=== PATIENT | male | born 1935 | race Caucasian/White ===

== ENCOUNTER → 2017-01-31 | Outpatient (CLI) | payer MEDICARE | END | disposition home or self-care (01) | LOC: RAD.S 07:39 | DX: R13.12 Dysphagia, oropharyngeal phase (principal) ==

== ENCOUNTER → 2017-02-03 | Outpatient (CLI) | payer MEDICARE ==
--- NOTE | ~2017-02-03 | ECH ---
Transthoracic Echocardiography Report (TTE) Demographics Patient Name CANDACE ROSE Date of Study 02/03/2017 Patient Number [id number] Visit Number [id number] Date of 1935 Room Number Accession Number [id number] Gender Male Age 81 year(s) Referring Olga Gomez [employer] Service Officer Nely Casillas MD [facility] Sudhir RAMIREZ Physician Interpreting Olga Byrne Director Hris Physician Supervising Ordering Physician Sudhir RAMIREZ MD/MLP Nurse Stress Junior Php Developer Conclusions Contractility Score Summary Wall motion difficult to assess due to arrhythmia and heart rate. Summary Technically good exam. The estimated left ventricular ejection fraction is 30-35%. Mild concentric left ventricular hypertrophy. The left atrium is severely dilated by LA volume index measurement. The right atrium is mild to moderately dilated. Mild-moderate mitral regurgitation by color Doppler. There is mild aortic regurgitation by color Doppler. Sclerotic changes of the aortic valve with decreased leaflet excursion but no significant stenosis by doppler. Mild tricuspid regurgitation by color Doppler. There is mild pulmonary hypertension. The pulmonary pressure (RVSP) is 37 mmHg. The ascending aorta appears severely dilated. The maximum diameter measures 5.4 cm. This is stable from previous exam of 07/15/2015. Procedure Type of Study TTE procedure:Echo Complete SF. Procedure Date Date: 02/03/2017 Start: 08:15 AM Technical Quality: Good visualization Indications:Atrial fibrillation. Additional Indications:Ascending aortic aneursym Appropriate Use Criteria: 9 Height: 69 inches Weight: 172 pounds BSA: 1.94 m Rhythm: Atrial fibrillation with RVR HR: 135 bpm BP: 110/68 mmHg M-Mode/2D Measurements LV Diastolic Dimension: 5.19 cm LV Systolic Dimension: 4.43 cm LV Septum Diastolic: 1.09 cm LV PW Diastolic: 1.06 cm AO Root Dimension: 3.37 cm Cardiac Output: 6.01 l/min LA Dimension: 4.05 cm Cardiac Index: 3.1 l/min*m RV Diastolic Dimension: 4.13 cm LA volume index: 72 ml/m LVOT: 1.99 cm LVOT VTI: 14.33 cm RV Base: 3.3 cm LV Stroke volume: 44.55 ml RV Mid: 2 cm LV Stroke volume index: 22.96 ml/m TAPSE: 2.2 cm TDI-S': 11 cm/s Doppler Measurements AV Peak Velocity: 2 m/s MV Peak E-Wave: 0.95 m/s AV Peak Gradient: 16 mmHg AV Mean Gradient: 12.21 mmHg MV P1/2t: 64.1 msec LVOT Peak Velocity: 0.72 m/s AV Area (Continuity):1.09 cm AV P1/2t: 579.7 msec MV Area (PHT): 3.43 cm TR Velocity:2.59 m/s PV Peak Velocity: 0.55 m/s TR Gradient:26.83 mmHg PV Peak Gradient: 1.21 mmHg Estimated RAP:10 mmHg Estimated PASP: 36.83 mmHg Estimated RVSP: 37 mmHg E' Septal Velocity: 0.06 m/s E' Lateral Velocity: 0.12 m/s RA Area: 24 cm Findings Left Ventricle The left ventricle is normal in size . Mild concentric left ventricular hypertrophy. Diastolic function indeterminate due to patient's arrhythmia. Right Ventricle Normal right ventricle structure and function. Left Atrium The left atrium is severely dilated by LA volume index measurement. Right Atrium The right atrium is mild to moderately dilated. Mitral Valve Mild mitral annular calcification. Mild-moderate mitral regurgitation by color Doppler. Aortic Valve The aortic valve is mildly sclerotic. There is mild aortic regurgitation by color Doppler. Tricuspid Valve Normal tricuspid valve structure and function. Mild tricuspid regurgitation by color Doppler. There is mild pulmonary hypertension. The pulmonary pressure (RVSP) is 37 mmHg. Pulmonic Valve Normal pulmonic valve structure and function. Pericardial Effusion No evidence of pericardial effusion. Miscellaneous The ascending aorta appears severely dilated. The maximum diameter measures 5.4 cm. Pleural Effusion No evidence of pleural effusion. Contractility Score LV regional wall motion:(0-Non visualized 1-Normal 2-Hypokinesis 3-Akinesis 4-Dyskinesis 5-Aneurysm) Signature
== END | disposition home or self-care (01) ==
LOC: RAD.S 01-26 14:59
DX: I71.2 Thoracic aortic aneurysm, without rupture (principal); I48.91 Unspecified atrial fibrillation; R91.8 Other nonspecific abnormal finding of lung field; I70.0 Atherosclerosis of aorta; J90 Pleural effusion, not elsewhere classified; I08.3 Combined rheumatic disorders of mitral, aortic and tricuspid valves; I51.7 Cardiomegaly

== ENCOUNTER 2017-02-18 07:10 | Day surgery (SDC) | payer MEDICARE ==
[~2017-02-18] VITALS: Ht 175.3 cm; Wt 76.4 kg
--- NOTE | ~2017-02-18 | CATH ---
Cardiac Diagnostic Report Demographics Patient Name MILTON Roberts Gender Male Date of 1935 Age 81 year(s) Patient Number [id number] Date of Study 02/18/2017 Visit Number [id number] Room Number Corporate ID Ht 175.26 cm Wt 77.56 kg Accession Number [id number] BSA 1.93 m kg/m Referring Olga Cantor Primary Physician Physician Jason Gonzales MD Performing Alba Gonzales MD Secondary Physician Physician Diagnostic Alba Gonzales MD Assisting Physician Physician Interventional Physician Classification Officer Physician Findings and Conclusions Procedure Description The patient was brought to the diagnostic cardiac catheterization laboratory in the fasting, non-sedated state. Informed consent was obtained in the written and verbal form after the risks and benefits were explained. The patient had no further questions and agreed to proceed. The planned puncture-incision site(s) were shaved and prepped with ChloraPrep and draped in the usual sterile manner. Conscious sedation, supplemental oxygen, and pain control medications were delivered by a registered nurse under physician guidance. Surface ECG rhythm, blood pressure measurement, and pulse oximetry were monitored throughout the procedure. Arterial access. The access site was infiltrated with lidocaine. The vessel was entered with the Seldinger technique. A sheath was advanced into the vessel and used for catheter placement. Selective left coronary angiography. A catheter was advanced into the left coronary vessel ostium under Fluoroscopic guidance. Contrast was injected by hand. Images were obtained in multiple projections. Selective right coronary angiography. A catheter was advanced into the right coronary vessel ostium under fluoroscopic guidance. Contrast was injected by hand. Images were obtained in multiple projections. Left heart catheterization. A catheter was advanced across the aortic valve to the left ventricle under fluoroscopic guidance. Resting hemodynamics were obtained. Arterial artery hemostasis was achieved. The patient was transferred to a regular nursing floor via cart accompanied by a nurse. The patient left the laboratory in stable condition. Diagnostic Cath Status: Elective Procedure Procedure Type Diagnostic procedure:Angiography:, Coronary Angios w/[facility] Indications: Pre-op AAA repair, Hyperlipidemia, Hypertension, Early family history of CAD and Peripheral vascular disease. The procedure was explained in detail to the patient. Risks, complications and alternative treatments were reviewed. Written consent was obtained. Medications Reviewed with Patient prior to Procedure. Procedure Data Procedure Date Date: 02/18/2017Start: 08:15 AM Medical History Allergies - No known allergies. Risk Factors The patient risk factors include:cerebrovascular disease, hypertension, family history of premature CAD, chronic lung disease, last creatinine: 1.1 mg/dl, creatinine clearance: 57.78 ml/min and dyslipidemia. Admission Data Admission Date: 02/18/2017 Admission Time: 07:10 AM Insurance Payors: Medicare. Clinical Evaluation Leading to Procedure - There were no CAD presentation symptoms. - There were no anginal symptoms. Anti-anginal medications were prescribed during the past two weeks. The medications are: Beta Blockers and Ca channel Blockers. 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 Hemodynamics Condition: Rest O2 Consumption: Estimated: 96.48 Shunts Oxygen Values O2 Consumption 96.48 Signatures
== END 2017-02-18 08:49 | disposition home or self-care (01) ==
LOC: SSS 07:10
DX: I71.2 Thoracic aortic aneurysm, without rupture (principal); G20 Parkinson's disease; J45.909 Unspecified asthma, uncomplicated; F41.9 Anxiety disorder, unspecified; K21.9 Gastro-esophageal reflux disease without esophagitis; G25.81 Restless legs syndrome; M47.816 Spondylosis without myelopathy or radiculopathy, lumbar region; E03.9 Hypothyroidism, unspecified; Z90.49 Acquired absence of other specified parts of digestive tract; Z86.73 Personal history of transient ischemic attack (TIA), and cerebral infarction without residual deficits; Z96.651 Presence of right artificial knee joint; Z98.890 Other specified postprocedural states; Z79.899 Other long term (current) drug therapy

== ENCOUNTER 2017-02-25 10:57 | Day surgery (SDC) | payer MEDICARE ==
[~2017-02-25] VITALS: Ht 175.3 cm; Wt 76.3 kg
--- NOTE | ~2017-02-25 | CATH ---
Cardiac Diagnostic Report Demographics Patient Name MILTON Roberts Gender Male Date of 1935 Age 81 year(s) Patient Number [id number] Date of Study 02/25/2017 Visit Number [id number] Room Number Corporate ID Ht 175.26 cm Wt 77.56 kg Accession Number [id number] BSA 1.93 m kg/m Referring Olga Cantor Primary Physician Physician Jason LAND Performing Alba Gonzales MD Secondary Physician Physician Diagnostic Alba Gonzales MD Assisting Physician Physician Interventional Physician Project Management Specialist Physician Findings and Conclusions Diagnostic Findings and Conclusion Non-obstructive CAD. Normal LVEDP Diagnostic Recommendations Follow up with CT surgeon for aortic aneurysm repair. Procedure Description The patient was brought to the diagnostic cardiac catheterization laboratory in the fasting, non-sedated state. Informed consent was obtained in the written and verbal form after the risks and benefits were explained. The patient had no further questions and agreed to proceed. The planned puncture-incision site(s) were shaved and prepped with ChloraPrep and draped in the usual sterile manner. Conscious sedation, supplemental oxygen, and pain control medications were delivered by a registered nurse under physician guidance. Surface ECG rhythm, blood pressure measurement, and pulse oximetry were monitored throughout the procedure. Arterial access. The right radial access site was infiltrated with lidocaine. The vessel was entered with the Seldinger technique. A 6 Fr sheath was advanced into the vessel and used for catheter placement. Multiple attempts were made with JL4, JL5, 5 Fr JL5 to engage the Coronary arteries without success due to the size of the aorta. Radial approach was aborted and switched to the femoral site. Arterial access. The right femoral access site was infiltrated with lidocaine. The vessel was entered with the Seldinger technique. A 5 Fr sheath was advanced into the vessel and used for catheter placement. After an attempt was made with the 5 FR JL5 was unsuccessful, the sheath was exchanged for a 6 FR to accommodate certain catheters. Selective left coronary angiography. A 6 Fr FL6 catheter was advanced into the left coronary vessel ostium under Fluoroscopic guidance. Contrast was injected by hand. Images were obtained in multiple projections. Left heart catheterization. A 5 Fr PRC catheter was advanced across the aortic valve to the left ventricle under fluoroscopic guidance. Resting hemodynamics were obtained. Selective right coronary angiography. After a 5 Fr FR4 catheter was unsuccessful, a 5 Fr PRC catheter was advanced into the right coronary vessel ostium under fluoroscopic guidance. Contrast was injected by hand. Images were obtained in multiple projections. Arterial artery hemostasis was achieved with 10 cc air in a TR Band. The patient was transferred back to Short Stay Surgery via cart accompanied by a nurse. The patient left the laboratory in stable condition. Diagnostic Cath Status: Elective Procedure Procedure Type Diagnostic procedure:Angiography:, Coronary Angios /[facility] Indications: Pre-op AAA repair, PVD, Hyperlipidemia, Hypertension and Early family history of CAD. The procedure was explained in detail to the patient. Risks, complications and alternative treatments were reviewed. Written consent was obtained. Medications Reviewed with Patient prior to Procedure. Complications: No Complication. Angiographic Findings Dominance: Right Cardiac Arteries and Lesion Findings LMCA: Normal (0% Stenosis). LAD: Abnormal. Lesion on Prox LAD: 20% stenosis . LCx: Abnormal. Lesion on Prox CX: 50% stenosis . RCA: Abnormal. Lesion on Mid RCA: 20% stenosis . Coronary Tree Procedure Data Procedure Date Date: 02/25/2017Start: 01:15 PMEnd: 02:08 PM Entry Locations - Percutaneous access was performed through the Right Radial artery. A 6 Fr sheath was inserted. Hemostasis was successfully obtained using a TR band. Closure Comments: 10 cc air in band. - Percutaneous access was performed through the Right Femoral artery (Primary location). A 5 Fr sheath was inserted. This was exchanged for a 6 Fr sheath. Procedure Medications Order and Administration + + +-------+-------+ !Time !Medication !Dosage !Route ! + + +-------+-------+ !02/25/2017 ![facility] Cocktail: 200mcg Nitro, 2.5 mg ! !I.A. ! !01:18 PM !Verapamil, 5000u Heparin ! ! ! + + +-------+-------+ !02/25/2017 !Nitroglycerin !tabs !S.L. ! !02:06 PM ! ! ! ! + + +-------+-------+ Devices Used - ACATH 6FR MULTIPACK CATHETERSwas used for:Left coronary angiography.Unable to cannulate the vessel. - ACATH 6FR FL5 CATHETER 100CMwas used for:Left coronary angiography.Unable to cannulate the vessel. - ACATH 5FR FL5 CATHETER 100CMwas used for:Left coronary angiography.Unable to cannulate the vessel. - ACATH 5FR MULTIPACK CATHETERSwas used for:Left coronary angiography.Unable to cannulate the vessel. - ACATH 6FR FL6 CATHETER 100CMwas used for:Left coronary angiography. - ACATH 5FR MULTIPACK CATHETERSwas used for:Right coronary angiography.Unable to cannulate the vessel. - ACATH 5F PRC CATHETER 100CMwas used for:Right coronary angiography. Contrast Material - Isovue 72102 ml - Isovue 85915 ml Fluoroscopy Time: Diagnostic: 13:12 minutes. Total: 13:12 minutes. Fluoroscopy Dose: Diagnostic: 737 mGy. Total: 737 mGy. Estimated Blood Loss: 12 ml. Medical History Allergies - No known allergies. Risk Factors The patient risk factors include:cerebrovascular disease, hypercholesterolemia, hypertension, family history of premature CAD, chronic lung disease, last creatinine: 1.1 mg/dl, creatinine clearance: 57.78 ml/min and dyslipidemia. Admission Data Admission Date: 02/25/2017 Admission Time: 10:57 AM Insurance Payors: Medicare. Clinical Evaluation Leading to Procedure - There were no CAD presentation symptoms. - There were no anginal symptoms. Anti-anginal medications were prescribed during the past two weeks. The medications are: Beta Blockers and Ca channel Blockers. 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 Diagnosed on 02/14/2017 11:45 AM. 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 Hemodynamics Condition: Rest O2 Consumption: Estimated: 257.81Heart Rate: 122 bpm Pressures (mmHg) +-----+ + !Site !Pressure ! +-----+ + !AO !117/76 (86) ! +-----+ + !LV !182/52 ,13 ! +-----+ + !AO !170/104 (134) ! +-----+ + !LV !114/14 ,16 ! +-----+ + Valve Gradients and Areas + +---------+---------+---------+ +---------+ + !Valve !Peak !Mean !Area !Index !Flow !Source ! + +---------+---------+---------+ +---------+ + !Aortic !0 ! ! ! ! ! ! + +---------+---------+---------+ +---------+ + !Aortic !0 ! ! ! ! ! ! + +---------+---------+---------+ +---------+ + Shunts Oxygen Values O2 Consumption 257.81 Signatures
== END 2017-02-25 20:22 | disposition home or self-care (01) ==
LOC: SSS 10:57
DX: I25.10 Atherosclerotic heart disease of native coronary artery without angina pectoris (principal); I71.2 Thoracic aortic aneurysm, without rupture; G20 Parkinson's disease; E78.5 Hyperlipidemia, unspecified; I10 Essential (primary) hypertension; F41.9 Anxiety disorder, unspecified; J45.909 Unspecified asthma, uncomplicated; E03.9 Hypothyroidism, unspecified; M19.90 Unspecified osteoarthritis, unspecified site; G25.81 Restless legs syndrome; Z96.651 Presence of right artificial knee joint; Z90.49 Acquired absence of other specified parts of digestive tract; Z79.899 Other long term (current) drug therapy

== ENCOUNTER → 2017-03-11 | Outpatient (CLI) | payer MEDICARE | END | disposition home or self-care (01) | LOC: RAD.S 10:37 | DX: H53.9 Unspecified visual disturbance (principal); R29.810 Facial weakness ==

== ENCOUNTER → 2017-04-19 | Outpatient (CLI) | payer MEDICARE | END | disposition home or self-care (01) | LOC: RAD.S 08:11 | DX: H53.2 Diplopia (principal); G93.89 Other specified disorders of brain; J32.0 Chronic maxillary sinusitis ==